=== PATIENT | male | born 1980 | race Two or more races ===

== ENCOUNTER 2019-02-02 15:32 | Emergency (ER) | payer OTHER ==
[~2019-02-02] VITALS: Ht 177.8 cm; Wt 77.1 kg
--- NOTE | 2019-02-02 15:46 | NUR ---
Dr Arias at the bedside for MSE.
[2019-02-02] MEDS ORDERED: NEOMY/BACITRA/POLYMYXIN B OINT UD PACKET TP ONE ×2 (16:42→16:45)
[2019-02-02 16:47] VITALS: BP 132/78
--- NOTE | 2019-02-02 16:47 | NUR ---
Patient discharged to home in stable conditon. Written and verbal after care instructions given. Patient verbalizes understanding of instructions.
== END 2019-02-02 16:49 | disposition home or self-care (01) ==
LOC: ER 15:32
DX: S63.284A Dislocation of proximal interphalangeal joint of right ring finger, initial encounter (principal); W21.03XA Struck by baseball, initial encounter; Y93.64 Activity, baseball; Y92.89 Other specified places as the place of occurrence of the external cause; Y99.8 Other external cause status
CPT/HCPCS: 73130; A4663

== ENCOUNTER 2019-02-04 23:03 | Emergency (ER) | payer OTHER ==
[~2019-02-04] VITALS: Ht 175.3 cm; Wt 77.1 kg
--- NOTE | 2019-02-04 23:20 | NUR ---
Patient ambulated with stable gait. A/Ox4. Patient came for re-evaluation of rhand fracture on digit 4.
--- NOTE | 2019-02-04 23:51 | NUR ---
Patient discharged to home in stable conditon. Written and verbal after care instructions given. Patient verbalizes understanding of instructions. Patient ambulated with stable gait.
[2019-02-05 00:07] VITALS: BP 120/89
== END 2019-02-04 23:50 | disposition home or self-care (01) ==
LOC: ER 23:03
DX: S63.284D Dislocation of proximal interphalangeal joint of right ring finger, subsequent encounter (principal); X58.XXXD Exposure to other specified factors, subsequent encounter
CPT/HCPCS: A4663